=== PATIENT | male | born 2000 | race Caucasian/White ===

== ENCOUNTER 2018-12-16 21:11 | Emergency (ER) | payer OTHER ==
--- NOTE | 2018-12-16 22:47 | RAD ---
CHEST ONE VIEW: 12/16/18 INDICATION: History of chest pain. COMPARISON: None. FINDINGS: The lungs are clear. The cardiac silhouette is within normal limits. No acute osseous abnormality is evident. IMPRESSION: No acute cardiopulmonary abnormality. POS: MICHELLE[facility]
--- NOTE | 2018-12-19 13:13 | EKG ---
Test Reason : Blood Pressure : / mmHG Vent. Rate : 090 BPM Atrial Rate : 090 BPM P-R Int : 136 ms QRS Dur : 104 ms QT Int : 438 ms P-R-T Axes : 027 -16 059 degrees QTc Int : 535 ms Normal sinus rhythm Voltage criteria for left ventricular hypertrophy Prolonged QT Abnormal ECG Confirmed by MCKENZIE JI DO ([id number]), make up editor OSMANI POLLARD ([id number] on 12/19/2018 1:13:01 PM Referred By: Confirmed By:MCKENZIE JI DO
== END 2018-12-16 23:25 | disposition home or self-care (01) ==
LOC: ERS 21:11
DX: R07.9 Chest pain, unspecified (principal); J45.909 Unspecified asthma, uncomplicated; F41.9 Anxiety disorder, unspecified; F32.9 Major depressive disorder, single episode, unspecified
CPT/HCPCS: 71045; 93005